=== PATIENT | female | born 1990 | race Caucasian/White ===

== ENCOUNTER 2016-11-22 14:04 | Emergency (ER) | payer OTHER ==
[2016-11-22 14:13] VITALS: TEMP 98.8; O2SAT 100
[2016-11-22] MEDS ORDERED: Sodium Chloride 0.9% 1,000 ML IV STA (14:56)
[2016-11-22 15:08] LABS: ADD MANUAL DIFF? NO
[2016-11-22 15:16] LABS: PH,URINE 6.5 (4.7-8.0); URINE APPEARANCE SLIGHT-CLOUDY (CLEAR); URINE BILIRUBIN NEGATIVE (NEGATIVE); URINE BLOOD LARGE (NEGATIVE); URINE COLOR YELLOW (YELLOW); URINE GLUCOSE (UA) NEGATIVE (NEGATIVE); URINE KETONE NEGATIVE (NEGATIVE); URINE LEUKOCYTE ESTERASE NEGATIVE Leu/uL (NEGATIVE); URINE PROTEIN TRACE mg/dL (<30 mg/dL)
[2016-11-22 15:17] LABS: BASO # 0.01 K/mm3 (0.0-2.0); BASO % 0.2 % (0.0-3.0); EOS # 0.1 (0.0-0.7); EOS % 1.9 % (1.5-5.0); GRAN % 29.9 % (50.0-68.0); HEMATOCRIT 34.3 % (36.0-48.0); LYMPH # 2.5 (1.2-3.4); LYMPH % 53.7 % (22.0-35.0); MEAN CELL VOLUME 81.7 fL (80.0-105.0); MEAN CORPUSCULAR HGB CONC 30.6 g/dl (31.0-37.0); MEAN PLATELET VOLUME 10.1 fl (7.0-11.0); MONO # 0.7 (0.1-0.6); MONO % 14.3 % (1.0-6.0); PLATELET COUNT 316 10^3/uL (120.0-450.0); RED CELL DISTRIBUTION WIDTH 15.1 % (11.5-14.5); WHITE BLOOD COUNT 4.7 10^3/ul (4.5-11.0)
[2016-11-22 15:26] LABS: ALKALINE PHOSPHATASE 76 U/L (38-133); ALT/SGPT 23 U/L (7-56); AST/SGOT 18 U/L (15-39); BILIRUBIN,TOTAL 0.5 mg/dL (0.2-1.3); BLOOD UREA NITROGEN 8 mg/dL (7-21); CALCIUM 9.2 mg/dL (8.4-10.5); CARBON DIOXIDE 23 mmol/L (21-33); CHLORIDE 108 mmol/L (98-107); GFR AFRICAN-AMERICAN > 60; GLUCOSE,RANDOM 81 mg/dL (70-110); LIPASE 100 U/L (23-300); MAGNESIUM 1.9 mg/dL (1.7-2.2); POTASSIUM 3.9 mmol/L (3.6-5.0); SODIUM 140 mmol/L (132-148); TOTAL PROTEIN 8.4 g/dL (5.8-8.3)
[2016-11-22 15:28] VITALS: RESP 18
[2016-11-22 15:30] LABS: URINE AMORPHOUS SEDIMENT SMALL; URINE BACTERIA MANY (NEG); URINE EPITHELIAL CELLS MANY /hpf (0-5); URINE RBC 25 - 30 /hpf (0-2)
--- NOTE | 2016-11-22 15:34 | CT ---
PROCEDURE: CT HEAD WITHOUT CONTRAST. HISTORY: headaches, vomiting, weight loss COMPARISON: None available. TECHNIQUE: Axial computed tomography images were obtained through the head/brain without intravenous contrast. Radiation dose: Total exam DLP = 688 mGy-cm. This CT exam was performed using one or more of the following dose reduction techniques: Automated exposure control, adjustment of the mA and/or kV according to patient size, and/or use of iterative reconstruction technique. FINDINGS: HEMORRHAGE: No intracranial hemorrhage. BRAIN: No mass effect or edema. No atrophy or chronic microvascular ischemic changes. VENTRICLES: Unremarkable. No hydrocephalus. CALVARIUM: Unremarkable. PARANASAL SINUSES: Unremarkable as visualized. No significant inflammatory changes. MASTOID AIR CELLS: Unremarkable as visualized. No inflammatory changes. OTHER FINDINGS: None. IMPRESSION: No acute finding
--- NOTE | 2016-11-22 15:35 | RAD ---
HISTORY: chest pain COMPARISON: No prior. TECHNIQUE: Chest PA and lateral FINDINGS: LUNGS: No active pulmonary disease. PLEURA: No significant pleural effusion identified. No pneumothorax apparent. CARDIOVASCULAR: Normal. OSSEOUS STRUCTURES: No significant abnormalities. VISUALIZED UPPER ABDOMEN: Normal. OTHER FINDINGS: None. IMPRESSION: No active disease.
--- NOTE | 2016-11-22 15:45 | ED PDOC ---
Arrival/HPI - General Chief Complaint: Syncope Time Seen by Provider: 11/22/16 14:13 Historian: Patient - History of Present Illness Narrative History of Present Illness (Text): 11/22/16 16:13 A 26 year old female, whose past medical history includes anemia, presents to the emergency department because she felt dizzy earlier today while she was walking with mother. According to mother, patient began to pass out and mother held her. Denies hitting her head or falls. Patient reports she currently feels dizzy in emergency department. Patient denies any chest pain or shortness of breath. Over the past 2 months, patient has had poor appetite and reports lost significant weight. Patient also notes mild nausea and vomiting last week, currently resolved. Notes she had abdominal pain, currently resolved. Patient admits to being depressed and has frequent headaches but denies any suicidal ideation, fever, lower extremity swelling, urinary symptoms or any other complaints at this time. Symptom Onset: Sudden Symptom Course: Unchanged Activities at Onset: Light Context: Walking Past Medical History - Provider Review Nursing Documentation Reviewed: Yes - Psychiatric Hx Substance Use: No Family/Social History - Physician Review Nursing Documentation Reviewed: Yes Family/Social History: No Known Family HX Smoking Status: Never Smoked Hx Alcohol Use: No Hx Substance Use: No Allergies/Home Meds Allergies/Adverse Reactions: Allergies No Known Allergies Allergy (Verified 11/22/16 14:13) Home Medications: Home Meds Medication Instructions Recorded Confirmed No Known Home Med 11/22/16 11/22/16 Review of Systems - Physician Review All systems were reviewed & negative as marked: Yes - Review of Systems Constitutional: absent: Fevers Respiratory: absent: SOB Cardiovascular: Syncope. absent: Chest Pain Gastrointestinal: Abdominal Pain, Nausea, Vomiting, Appetite Changes (poor appetite) Genitourinary Female: absent: Dysuria, Frequency, Hematuria Neurological: Headache (frequent), Dizziness Psychiatric: Depression. absent: Suicidal Ideation Physical Exam Vital Signs Reviewed: Yes Vital Signs Temp Pulse Resp BP Pulse Ox 11/22/16 18:15 79 18 138/79 100 11/22/16 16:28 82 18 143/89 100 11/22/16 15:27 89 18 145/95 H 100 11/22/16 14:13 98.8 F 90 16 149/100 H 100 Temperature: Afebrile Blood Pressure: Hypertensive Pulse: Regular Respiratory Rate: Normal Appearance: Positive for: Well-Appearing, Non-Toxic, Comfortable Pain Distress: None Mental Status: Positive for: Alert and Oriented X 3 - Systems Exam Head: Present: Atraumatic, Normocephalic Pupils: Present: PERRL Extroacular Muscles: Present: EOMI Conjunctiva: Present: Normal Mouth: Present: Moist Mucous Membranes Neck: Present: Normal Range of Motion Respiratory/Chest: Present: Clear to Auscultation, Good Air Exchange. No: Respiratory Distress, Accessory Muscle Use Cardiovascular: Present: Regular Rate and Rhythm, Normal S1, S2. No: Murmurs Abdomen: Present: Normal Bowel Sounds. No: Tenderness, Distention, Peritoneal Signs Back: Present: Normal Inspection Upper Extremity: Present: Normal Inspection. No: Cyanosis, Edema Lower Extremity: Present: Normal Inspection. No: Edema Neurological: Present: GCS=15, CN II-XII Intact, Speech Normal Skin: Present: Warm, Dry, Normal Color. No: Rashes Psychiatric: Present: Alert, Oriented x 3, Normal Insight, Normal Concentration Medical Decision Making ED Course and Treatment: 11/22/16 15:43 Impression: A 26 year old female with dizziness and syncopal episode. Differential Diagnosis included but are not limited to: dehydration vs. anemia with underlying depression Plan: -- EKG -- CT head -- chest xray -- labs -- Urinalysis -- IV fluids -- Reassess and disposition Progress Notes: EKG: Ordered, reviewed, and independently interpreted the EKG. Rate : 76 BPM Rhythm : NSR Interpretation : Normal intervals, normal axis, no ST/T changes Comparison : No previous EKG for comparison. 11/22/16 15:36 CT HEAD WITHOUT CONTRAST Creator : Cory Waters MD IMPRESSION: No acute finding. 11/22/16 15:39 chest xray Creator : Cory Waters MD IMPRESSION: No active disease. 11/22/16 18:41 Patient with noted history of syncope. EKG is normal with unremarkable vitals and labs and exam. Patient medically cleared. Given likelihood that patient is not eating due to depression, seen by PES, who recommended the patient follow up with the [facility]. - Lab Interpretations Lab Results: 11/22/16 15:00 11/22/16 15:00 Lab Results 11/22/16 15:00: Alcohol, Quantitative < 10 11/22/16 15:00: Sodium 140, Potassium 3.9, Chloride 108 H, Carbon Dioxide 23, Anion Gap 13, BUN 8, Creatinine 0.6, Est GFR ( Amer) > 60, Est GFR (Non- Af Amer) > 60, Random Glucose 81, Calcium 9.2, Magnesium 1.9, Total Bilirubin 0.5, AST 18, ALT 23, Alkaline Phosphatase 76, Lactate Dehydrogenase 313 L, Total Creatine Kinase 46, Troponin I < 0.01, Total Protein 8.4 H, Albumin 4.3, Globulin 4.1, Albumin/Globulin Ratio 1.0 L, Lipase 100 11/22/16 15:00: WBC 4.7, RBC 4.20, Hgb 10.5 L, Hct 34.3 L, MCV 81.7, MCH 25.0, MCHC 30.6 L, RDW 15.1 H, Plt Count 316, MPV 10.1, Gran % 29.9 L, Lymph % (Auto) 53.7 H, [place] % (Auto) 14.3 H, Eos % (Auto) 1.9, Baso % (Auto) 0.2, Gran # 1.40, Lymph # 2.5, [place] # 0.7 H, Eos # 0.1, Baso # 0.01 11/22/16 14:50: Urine HCG, Qual Negative 11/22/16 14:50: Urine Opiates Screen Negative, Urine Methadone Screen Negative, Ur Barbiturates Screen Negative, Ur Phencyclidine Scrn Negative, Ur Amphetamines Screen Negative, U Benzodiazepines Scrn Negative, U Oth Cocaine Metabols Negative, U Cannabinoids Screen Negative 11/22/16 14:50: Urine Color Yellow, Urine Appearance Slight-cloudy, Urine pH 6.5 , Ur Specific [place] 1.025, Urine Protein Trace H, Urine Glucose (UA) Negative , Urine Ketones Negative, Urine Blood Large H, Urine Nitrate Negative, Urine Bilirubin Negative, Urine Urobilinogen 1.0 H, Ur Leukocyte Esterase Negative, Urine RBC 25 - 30, Urine WBC 1 - 3, Ur Epithelial Cells Many, Amorphous Sediment Small, Urine Bacteria Many, Urine Other Uyeast I have reviewed the lab results: Yes - RAD Interpretation Radiology Orders: 11/22/16 14:51 HEAD W/O CONTRAST [CT] Stat 11/22/16 14:55 CHEST TWO VIEWS (PA/LAT) [RAD] Stat - EKG Interpretation Interpreted by ED Physician: Yes Type: 12 lead EKG - Medication Orders Current Medication Orders: Discontinued Medications Sodium Chloride (Sodium Chloride 0.9%) 1,000 mls @ 999 mls/hr IV .[id number] STA Stop: 11/22/16 15:56 Last Admin: 11/22/16 15:30 Dose: 999 mls/hr - Scribe Statement The provider has reviewed the documentation as recorded by the Alberto Nowak Provider Scribe Attestation: All medical record entries made by the Alberto were at my direction and personally dictated by me. I have reviewed the chart and agree that the record accurately reflects my personal performance of the history, physical exam, medical decision making, and the department course for this patient. I have also personally directed, reviewed, and agree with the discharge instructions and disposition. Disposition/Present on Arrival - Present on Arrival Any Indicators Present on Arrival: No History of DVT/PE: No History of Uncontrolled Diabetes: No Urinary Catheter: No History of Decub. Ulcer: No History Surgical Site Infection Following: None - Disposition Have Diagnosis and Disposition been Completed?: Yes Diagnosis: Syncope, Adjustment disorder with depressed mood Disposition: HOME/ ROUTINE Disposition Time: 18:40 Patient Plan: Discharge Condition: GOOD Discharge Instructions (ExitCare): Syncope (ED), Depression (ED), Mood Disorders (ED), Stress (ED) Additional Instructions: Drink plenty of fluids. Take your iron as previously prescribed. Follow up with [facility] and the medical clinic. Return to the emergency department if any new concerning symptoms. Referrals: [facility] [Outside] - Follow up with primary [facility] at [facility] [Outside] - Follow up with primary
[2016-11-22 15:53] LABS: TROPONIN I < 0.01 ng/mL
[2016-11-22 18:15] VITALS: BP 138/79; PULSE 79
--- NOTE | 2016-11-24 01:27 | CARD ---
APPROVED REPORT EKG Measurement Heart [id number] <Conclusion> Normal sinus rhythm Normal ECG
== END 2016-11-22 18:50 | disposition home or self-care (01) ==
LOC: ED 14:04
DX: R55 Syncope and collapse (principal); F43.21 Adjustment disorder with depressed mood
CPT/HCPCS: 70450; 71020; 80053; 81001; 82550; 83615; 83690; 83735; 84484; 84703; 85025; 90791; 93005; 96360; 99284; G0480; J7040